=== PATIENT | male | born 1980 | race Caucasian/White ===

== ENCOUNTER 2020-02-06 14:09 | Emergency (ER) | payer BC, SELFPAY ==
--- NOTE | 2020-02-06 14:44 | ED.BACK ---
HPI - Back Pain/Injury General Chief Complaint: Back Pain/Injury Stated Complaint: back pain Time Seen by Provider: 02/06/20 14:21 Source: patient Mode of arrival: ambulatory Limitations: no limitations History of Present Illness HPI Narrative: Patient is a 39-year-old male who presents with right lower back pain radiating to the right thigh with history of similar occurrence followed by primary care has had x-rays in the recent past. Patient denies injury or trauma or recent illness patient is taken [id number] medications with minimal improvement patient on arrival to emergency department in the room in no distress Related Data Allergies Allergy/AdvReac Type Severity Reaction Status Date / Time Penicillins Allergy Hives Verified 02/06/20 14:49 Review of Systems Review of Systems: All systems reviewed & are unremarkable except as noted in HPI and below PMFSH Surgical History Surgical History (Updated 02/06/20 @ 14:48 by Palmer Weiss PA-C) H/O hernia repair Social History Social History (Updated 02/06/20 @ 14:48 by Palmer Weiss PA-C) Smoking status: Former smoker Exam Narrative: Exam Narrative: GENERAL: Well-appearing, well-nourished, and in no acute distress. HEAD: Normocephalic, atraumatic. EYES: PERRLA and EOMI. ENT: Nares clear, no rhinorrhea or epistaxis. Mucous membranes moist. CHEST: Clear to auscultation. No respiratory distress. No wheezes rales or rhonchi HEART: Regular rate and rhythm. No murmur heard. EXTREMITIES: Normal range of motion. No edema. Tenderness over the right paraspinal lumbar musculature no deformities noted SKIN: Warm, dry, no rash. NEURO: No focal deficits. Alert and oriented x3. Normal speech and gait. Cranial nerves II through XII grossly intact. Motor and sensory intact and symmetrical in the extremities PSYCH: Normal mood and affect. Course Course Emergency Course: Patient aware of case findings treatment plan and diagnosis agreeing to follow-up as directed MDM - Back Pain/Injury MDM Narrative Medical decision making narrative: Patients pain is positional in nature and localized to back without signs of cord compression or cauda equina based on neurological exam, skeletal exam and history. No fever or other significant factors to suggest osteomyelitis or spinal epidural abscess. No symptoms or signs to suggest pain is referred from abdominal or / cardiopulmonary sources. No pulsatile masses noted on exam. Patient ambulates with steady gait and is stable for outpatient management given case findings. Discharge Plan Discharge Clinical Impression: Lumbar radiculopathy Patient Disposition: Home, Self-Care Condition: Stable Instructions: Antibiotic Form, Acute Low Back Pain (ED) Additional Instructions: Medications as needed and prescribed. Limit lifting and bending. You may apply heat or cold to the area as needed. Follow up with your doctor for further care in the next 7 days. Contact your doctor or return to the emergency department if you develop problems with bladder or bowel function, weakness or loss of feeling in one or both of your legs, or any other serious concerns. Prescriptions: New cyclobenzaprine 10 mg tablet 10 mg PO TID PRN (Reason: muscle spasm) Qty: 20 RF: 0 naproxen 500 mg tablet 500 mg PO BID PRN (Reason: pain) Qty: 7 RF: 0 Follow-up/Referrals: Can Bryant MD [Primary Care Provider] -
[2020-02-06 14:46] VITALS: BP 174/107; PULSE 95; RESP 18; TEMP 37.2; O2SAT 98
[2020-02-06] MEDS: KETOROLAC (*BKC) 60 MG/2 ML VIAL IM (14:58)
== END 2020-02-06 15:09 | disposition home or self-care (01) ==
PROVIDERS: Emergency Provider Emergency Medicine; PCP Emergency Medicine
DX: M54.16 Radiculopathy, lumbar region (principal); Z87.891 Personal history of nicotine dependence
CPT/HCPCS: 96372; 99283; J1885

== ENCOUNTER 2020-02-13 08:24 | Outpatient (CLI) | payer BC, SELFPAY ==
--- NOTE | ~2020-02-13 | XR_ITS ---
EXAMINATION: XR knee RT min 4V DATE: 02/13/2020 08:41 INDICATION: Right knee pain. TECHNIQUE: 4 views of right knee were obtained. COMPARISON: None. FINDINGS: Bone alignment is normal. No fracture. Joint spaces are well maintained. There is no knee j oint effusion. IMPRESSION: 1. Normal right knee. Reviewed, dictated and finalized at location A. IMPRESSION: 1. Normal right knee.
== END 2020-02-13 08:25 | disposition home or self-care (01) ==
LOC: ANHIMG 08:29
PROVIDERS: PCP Emergency Medicine; Visit Provider Emergency Medicine
DX: M25.561 Pain in right knee (principal)
CPT/HCPCS: 73564

== ENCOUNTER 2020-02-26 09:40 | Outpatient (CLI) | payer BC, SELFPAY ==
--- NOTE | ~2020-02-26 | US_ITS ---
US thyroid INDICATION: Hypothyroidism TECHNIQUE: Real-time sonographic images of the thyroid gland were obtained. COMPARISON: No prior studies for comparison. FINDINGS: The right thyroid lobe measures 5 x 2.4 x 2.4 cm. The left thyroid lobe measures 3.8 x 1.9 x 2 cm. There is heterogeneous echotexture and echogenicity throughout the thyroid gland. No discret e nodules identified. Increased vascular flow is present. IMPRESSION: 1. Heterogeneous thyroid without discrete nodule. Increased vascularity, suspicious for thyroiditis. Correlate clinically.. Reviewed, dictated and finalized at location A. IMPRESSION: 1. Heterogeneous thyroid without discrete nodule. Increased vascularity, suspi cious for thyroiditis. Correlate clinically..
== END 2020-02-26 09:41 | disposition home or self-care (01) ==
PROVIDERS: PCP Emergency Medicine; Visit Provider Emergency Medicine
DX: E03.9 Hypothyroidism, unspecified (principal)
CPT/HCPCS: 76536

== ENCOUNTER → 2022-01-14 14:54 | Outpatient (CLI) | payer BC, SELFPAY ==
--- NOTE | ~2022-01-14 | XR_ITS ---
EXAMINATION: XR chest 2V Exam Date/Time: 01/14/2022 14:57 CDT CLINICAL HISTORY: COUGH Comparison: 05/28/2016. RESULT: Lines, tubes, and devices: None. Lungs and pleura: Stable diffuse reticulonodular pattern. Cardiomediastinal silhouette: Stable cardiomediastinal silhouette. Other: No acute osseous or upper abdominal finding. IMPRESSION: No acute cardiopulmonary process. 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 Reviewed, dictated and finalized at location K.
== END ==
PROVIDERS: PCP Emergency Medicine; Visit Provider Emergency Medicine
DX: R05.3 Chronic cough (principal)
CPT/HCPCS: 71046

== ENCOUNTER 2022-03-17 20:20 | Emergency (ER) | payer BC, SELFPAY ==
--- NOTE | ~2022-03-17 | XR_ITS ---
EXAM: XR forearm RT 2V DATE: 03/17/2022 20:50 HISTORY: laceration from glass, r/o FB, INJURY TODAY, ANT LACERATION . COMPARISON: None available. FINDINGS: Normal mineralization. No fracture or dislocation. No lytic or blastic lesion. Joint space s are maintained. No erosion or periosteal change. Soft tissues within normal limits. IMPRESSION: No acute osseous finding in the right forearm. No radiopaque foreign body. Reviewed, dictated and finalized at location K. IMPRESSION: No acute osseous finding in the right forearm. No radiopaque foreig n body.
[2022-03-17 20:25] VITALS: BP 149/93; PULSE 88; RESP 19; TEMP 36.6; O2SAT 98
--- NOTE | 2022-03-17 21:37 | ED.WOUNDLAC ---
HPI - Wound/Laceration General Chief Complaint: Wound/Laceration Stated Complaint: lac to right arm Time Seen by Provider: 03/17/22 20:35 Source: patient Mode of arrival: ambulatory Limitations: no limitations History of Present Illness HPI narrative: Patient is a 41-year-old male who presents to the ED with report of lacerations to right forearm. Patient reports he was doing dishes tonight and was putting a dish away when his hand accidentally hit the face of a clock on the wall. The clock face broke and a piece of glass went through his skin, sustaining 2 lacerations to his mid ventral forearm. Bleeding controlled upon my evaluation. Tetanus status unknown. No numbness/tingling/weakness. No other injuries. Related Data Allergies Allergy/AdvReac Type Severity Reaction Status Date / Time Penicillins Allergy Hives Verified 03/17/22 20:33 Review of Systems Review of Systems: CONSTITUTIONAL: Denies fever, chills, or sweats. SKIN: Reports lacerations to R forearm. MUSCULOSKELETAL: Denies joint pain. NEUROLOGIC: Denies numbness, tingling, or weakness. All systems reviewed & are unremarkable except as noted in HPI and below PMFSH Past Medical History Medical History Hypercholesterolemia Hypothyroidism Surgical History Surgical History H/O hernia repair Social History Social History Smoking status: Former smoker Exam Narrative: GENERAL: Well appearing, well-nourished, non-toxic, in no acute distress. HEAD: Normocephalic, atraumatic. NECK: Supple. No adenopathy, no masses. RESPIRATORY: Airway patent, respirations nonlabored. Clear to auscultation bilaterally, no rales, rhonchi, wheezing. CARDIOVASCULAR: Regular rate and rhythm without murmurs, rubs, or gallops. Radial pulses 2+ and equal bilaterally. MUSCULOSKELETAL: Moves all extremities. Strength/ROM intact. Sensation intact. SKIN: Warm, dry, normal color. No rashes. 2 curvilinear lacerations,- ulnar side 2.5 cm / radial side 2cm - to mid right ventral forearm with hematoma formation between lacerations. Bleeding controlled. Small abrasion over distal radius, no deeper laceration. No active bleeding. NEURO: A&O X3. Speech clear. Cranial nerves II-XII grossly intact. Steady gait. No ataxic movements. PSYCHIATRIC: Appropriate mood and affect. Normal interaction. Course Vital Signs Vital signs: Vital Signs Temperature 97.8 F 03/17/22 20:25 Pulse Rate 88 03/17/22 20:25 Respiratory Rate 03/17/22 20:25 Blood Pressure 149/93 H 03/17/22 20:25 Pulse Oximetry 98 03/17/22 20:25 Oxygen Delivery Room Air 03/17/22 20:25 Temperature 97.8 F 03/17/22 20:25 Pulse Rate 88 03/17/22 20:25 Respiratory Rate 03/17/22 20:25 Blood Pressure 149/93 H 03/17/22 20:25 Pulse Oximetry 98 03/17/22 20:25 Oxygen Delivery Room Air 03/17/22 20:25 Procedures Laceration Laceration 1: Date: 03/17/22 Time: 22:10 Site: upper extremity (forearm) Side (If applicable): right Size (cm): 2.5 Description: linear (curvillinear) Depth: simple, single layer Local Anesthetic: lidocaine 1% and with epi Amount of anesthesia used (mL): 5 Pre-repair: wound explored and irrigated extensively ====== Skin Level ====== Skin layer closed with: nylon Size (cm): 4-0 Number of sutures: 5 Technique: simple, interrupted ====== Subcutaneous Layer ====== ====== Muscle Layer ====== ====== Tendon Layer ====== Laceration 2: Date: 03/17/22 Time: 22:20 Site: upper extremity (forearm) Side (If applicable): right Size (cm): 2 Description: linear (curvillinear) Depth: simple, single layer Local Anesthetic: lidocaine 1% and with epi Amount of anest
[2022-03-17] MEDS: LIDO 1%/EPINEPHRINE 1:100,000 20 ML VIAL 5 ML INFILTRATE (22:01)
[2022-03-17] MEDS: TETANUS,DIPHTHERIA,AC PERTUSSIS ADULT (0.5 ML) BOOSTRIX IM (22:35)
== END 2022-03-17 22:39 | disposition home or self-care (01) ==
PROVIDERS: Emergency Provider Emergency Medicine; PCP Emergency Medicine
DX: S51.811A Laceration without foreign body of right forearm, initial encounter (principal); W25.XXXA Contact with sharp glass, initial encounter; E03.9 Hypothyroidism, unspecified; Z23 Encounter for immunization
CPT/HCPCS: 12002; 73090; 90471; 90715; 99283